=== PATIENT | male | born 1985 | race Caucasian/White ===

== ENCOUNTER 2018-09-08 01:27 | Emergency (ER) | payer MEDICAID ==
--- NOTE | 2018-09-08 02:47 | C.PDOC ---
History Of Present Illness 32 year old male presents with dental pain and right upper facial swelling for the past 3 days. Patient has been taking OTC meds with no relief and is requesting stronger pain meds. Denies fever or injury, no recent dental work. Time Seen by Provider: 09/08/18 01:55 Chief Complaint (Nursing): Dental Pain History Per: Patient History/Exam Limitations: no limitations Onset/Duration Of Symptoms: Days (3) Current Symptoms Are (Timing): Still Present Recent travel outside of the [place]: No Past Medical History Reviewed: Historical Data, Nursing Documentation, Vital Signs Vital Signs: Last Vital Signs Temp 98.3 F 09/08/18 01:42 Pulse 112 H 09/08/18 01:42 Resp 20 09/08/18 01:42 BP 116/85 09/08/18 01:42 Pulse Ox 97 09/08/18 01:42 - Medical History PMH: Bipolar Disorder Denies: Chronic Kidney Disease - [employer] Capture Procedures INJECT/INFUSE NEC (10/31/12) Family History: States: Unknown Family Hx - Social History Hx Tobacco Use: Yes Hx Alcohol Use: Yes Hx Substance Use: Yes - Immunization History Hx Tetanus Toxoid Vaccination: No Hx Influenza Vaccination: No Hx Pneumococcal Vaccination: No Review Of Systems Constitutional: Negative for: Fever ENT: Positive for: Mouth Pain Musculoskeletal: Positive for: Other (Facial swelling) Physical Exam - Physical Exam Appears: Non-toxic Skin: Normal Color, Warm Head: Atraumatic, Normacephalic, Swelling (Right facial area) Eye(s): bilateral: Normal Inspection Ear(s): Bilateral: Normal Nose: Normal Oral Mucosa: Moist Tongue: Normal Appearing, No Swelling Lips: Normal Appearing, No Swelling Teeth: Caries (Right upper premolar) Gingiva: Other (Swelling and tenderness to right upper premolar area) Throat: Normal, No Erythema, No Exudate Neck: Normal, Supple, No Other (Swelling) Neurological/Psych: Oriented x3, Normal Speech ED Course And Treatment O2 Sat by Pulse Oximetry: 97 (room air) Pulse Ox Interpretation: Normal Progress Note: Toradol and penicillin administered. Patient is resting comfortably in no acute distress, vitals are stable, will discharge home with Rx and instructions to follow up with dentist tomorrow. Disposition Counseled Patient/Family Regarding: Diagnosis, Need For Followup, Rx Given - Disposition Referrals: [facility] [place] [Outside] dental clinic, Dental office [Other] Disposition: HOME/ ROUTINE Disposition Time: 02:45 Condition: STABLE Additional Instructions: Please follow up with a dentist in 1-2 days Take medications as directed Return to ER if worse Prescriptions: Naproxen [Naprosyn] 1 tab PO BID PRN #25 tab PRN Reason: Pain Penicillin VK [Penicillin VK Tab] 2 tab PO BID #28 tab Instructions: Tooth Abscess (DC), Dental Pain (DC) Forms: [facility] ([place]er) - Clinical Impression Clinical Impression: Dental caries, Dental abscess - 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 - Scribe Statement The provider has reviewed the documentation as recorded by the Rigobertoibhallie Hernandez All medical record entries made by the Robin were at my direction and perso austyn dictated by me. I have reviewed the chart and agree that the record accurately reflects my personal performance of the history, physical exam, medical decision making, and the department course for this patient. I have also personally directed, reviewed, and agree with the discharge instructions and disposition.
[2018-09-08 03:05] VITALS: BP 124/72; PULSE 75; RESP 18; TEMP 98.2
[2018-09-08 04:05] VITALS: O2SAT 97
== END 2018-09-08 03:05 | disposition home or self-care (01) ==
LOC: C.ER 01:27
DX: K02.9 Dental caries, unspecified (principal); K04.7 Periapical abscess without sinus
CPT/HCPCS: 96372; 99283; J1885